=== PATIENT | female | born 1985 | race Two or more races ===

== ENCOUNTER 2017-01-07 20:59 | Emergency (ER) | payer MEDICAID ==
[~2017-01-07 20:59] MED LIST: ALPRAZOLAM PO; ALPRAZOLAM0.5 M2 PO; ANTIVERT12.5 MG PO; BENADRYL25 M3 PO; CHERATUSSIN AC118 M1 PO; CIPRO250 M2 PO; CLARITIN10 M6 PO; CLONAZEPAM1 M2 PO; CLONIDINE HCL0.1 M2 PO; FLAGYL500 M1 PO; HYDROCODON-ACE1 EA16 PO; MECLIZINE HCL25 MG PO; METOPROLOL SUCC25 MG PO; MIDODRINE PO; NORCO 5-325 TA1 EACH PO; PINDOLOL PO; PREDNISONE10 M1 PO; PROAIR HFA8.5 GM INH; TOPROL XL25 M1 PO; ZOFRAN ODT4 MG PO; ZOFRAN ODT4 MG/UDTAB PO
[2017-01-07] MEDS ORDERED: ROBAXIN (21:26)
[2017-01-07 22:20] LABS: BASO % 0.3 % (0-2); EOS % 0.6 % (0-7); EOSINOPHIL ABSOLUTE COUNT 0.1 tho/cmm (0.0-0.7); HCT-HEMATOCRIT 39.6 % (34.0-49.0); HGB-HEMOGLOBIN 13.3 gm/dl (12.0-15.5); IMMATURE GRANULOCYTES ABSOLUTE 0.02 tho/cmm (0-0.03); IMMATURE GRANULOCYTES PERCENT 0.2 % (0-0.3); LYMPH % 34.1 % (20-45); LYMPH ABSOLUTE COUNT 3.3 tho/cmm (0.8-4.5); MCH (MEAN CORPUSCULAR HGB) 30.6 pg (28.0-32.0); MCHC MEAN CORPUSCULAR HGB CONC 33.6 % (32.0-36.0); MEAN PLATELET VOLUME 10.2 cmc (9.4-12.4); MONO % 6.8 % (0-12); MONOCYTE ABSOLUTE COUNT 0.7 tho/cmm (0.0-1.2); NEUTROPHIL ABSOLUTE COUNT 5.5 tho/cmm (1.6-8.0); NEUTROPHIL-AUTOMATED 5.5 tho/cmm (1.6-8.0); PLATELET COUNT 258 tho/cmm (150-450); RED BLOOD COUNT 4.35 mil/cmm (4.00-5.20); RED CELL DISTRIBUTION WIDTH 12.8 % (12.4-16.4); WHITE BLOOD COUNT 9.5 tho/cmm (4.0-10.0)
[2017-01-07 22:32] LABS: ANION GAP 12 mmol/L (0-20); BLOOD UREA NITROGEN 16 mg/dl (6-24); CALCIUM 8.3 mg/dl (8.5-10.5); CARBON DIOXIDE-VENOUS 24 mmol/L (22-32); CHLORIDE 111 mmol/l (96-110); CREATININE 0.96 mg/dl (0.50-1.10); GLUCOSE 93 mg/dL (70-110); SODIUM 143 mmol/L (135-145); eGFR VALUE FOR BLACK >90 mL/Min
[2017-01-07 22:35] LABS: PREGNANCY-SERUM NEGATIVE (NEGATIVE)
[2017-01-07] MEDS ORDERED: ZOFRAN ODT4 MG PO (22:47)
== END 2017-01-07 23:04 ==
LOC: EDMED 20:59
PROVIDERS: Emergency Medicine
DX: R55 Syncope and collapse (principal); Z87.898 Personal history of other specified conditions
CPT/HCPCS: J2405; J7030